=== PATIENT | male | born 1955 ===

== ENCOUNTER 2022-09-15 18:25 | Outpatient (REF) | payer MEDICARE, SELFPAY ==
[2022-09-15 20:49] LABS: HCT 40.3 % (40.0-50.0); HGB 13.5 g/dL (13.5-17.5); MCH 30.4 pg (27.0-33.0); MCHC 33.5 % (32.0-36.0); MCV 91 fL (80-95); MPV 9.7 fL (8.0-11.0); Platelet Count 290 10^3/uL (130-400); RBC 4.44 10^6/uL (4.36-5.78); RDW 12.9 % (11.8-14.1); RDW-SD 42.7 fL; WBC 6.14 10^3/uL (4.4-10.8)
[2022-09-15 21:14] LABS: ALT 23 U/L (16-63); AST 31 U/L (15-37); Alkaline Phosphatase 78 U/L (46-116); Anion Gap 9.5 mmol/L (3-11); BUN 26 mg/dL (7-18); Bilirubin, Total 0.5 mg/dL (0.2-1.0); CO2 25.5 mmol/L (21.0-32.0); CREATININE 1.1 mg/dL (0.70-1.30); Calcium 9.6 mg/dL (8.5-10.1); Calculated LDL 70 mg/dL (<100); Chloride 105 mmol/L (98-107); Cholesterol 168 mg/dL (<200); Estimated GFR 73.58 (mL/min/1.73m2); Glucose 115 mg/dL (74-106); HDL Cholesterol 80 mg/dL (40-60); Potassium 4.2 mmol/L (3.5-5.1); Sodium 140 mmol/L (136-145); TSH 1.67 uIU/mL (0.36-3.74); Total Protein 7.7 g/dL (6.4-8.2); Triglyceride 93 mg/dL (<150)
[2022-09-15 21:24] LABS: Uric Acid 4.5 mg/dL (3.5-7.2)
[2022-09-16 20:28] LABS: PSA, Screening 0.8 ng/mL (<=4.5)
== END 2022-09-15 18:26 | disposition home or self-care (01) ==
LOC: NCHCN 18:25
PROVIDERS: Visit Provider Family Medicine
DX: Z00.00 Encounter for general adult medical examination without abnormal findings (principal)
CPT/HCPCS: 80053; 80061; 84153; 85027; 84443; 84550

== ENCOUNTER 2023-07-21 12:30 | Outpatient (REF) | payer MEDICARE, SELFPAY ==
[2023-07-21 15:38] LABS: ALT 21 U/L (16-63); AST 36 U/L (15-37); Albumin 3.9 g/dL (3.4-5.0); Alkaline Phosphatase 80 U/L (46-116); Anion Gap 9.6 mmol/L (3-11); BUN 18 mg/dL (7-18); Bilirubin, Total 0.5 mg/dL (0.2-1.0); CO2 24.4 mmol/L (21.0-32.0); CREATININE 0.8 mg/dL (0.70-1.30); Calcium 9.5 mg/dL (8.5-10.1); Chloride 103 mmol/L (98-107); Glucose 90 mg/dL (74-106); Potassium 4.4 mmol/L (3.5-5.1); Sodium 137 mmol/L (136-145); Total Protein 7.7 g/dL (6.4-8.2)
== END 2023-07-21 12:31 | disposition home or self-care (01) ==
LOC: NCHCN 12:30
PROVIDERS: Visit Provider Family Medicine
DX: B35.1 Tinea unguium (principal)
CPT/HCPCS: 80053